=== PATIENT | male | born 1990 | race Caucasian/White ===

== ENCOUNTER 2020-02-10 16:07 | Emergency (ER) | payer SELFPAY ==
[~2020-02-10] VITALS: Ht 177.8 cm; Wt 78.0 kg
[2020-02-10 16:16] VITALS: Ht 177.8 cm; Wt 78.0 kg
[2020-02-10 16:48] VITALS: BP 137/88
== END 2020-02-10 16:48 | disposition home or self-care (01) ==
LOC: ED 16:07
DX: S80.861A Insect bite (nonvenomous), right lower leg, initial encounter (principal); W57.XXXA Bitten or stung by nonvenomous insect and other nonvenomous arthropods, initial encounter; Y93.89 Activity, other specified; Y92.098 Other place in other non-institutional residence as the place of occurrence of the external cause; Y99.8 Other external cause status